=== PATIENT | male | born 1985 | race Caucasian/White ===

== ENCOUNTER 2017-10-19 10:57 | Emergency (ER) | payer OTHER ==
[~2017-10-19] VITALS: Ht 172.7 cm; Wt 80.1 kg
[~2017-10-19 10:57] MED LIST: DOCU-28 PO; ONDA4TAB6 PO
[2017-10-19] MEDS ORDERED: ketorolac trometh inj. 60 MG/2 ML VIAL IM ONE (12:15)
[2017-10-19 13:35] VITALS: BP 120/65
== END 2017-10-19 13:46 | disposition home or self-care (01) ==
LOC: ER 10:58
DX: M25.562 Pain in left knee (principal); M25.462 Effusion, left knee; J45.909 Unspecified asthma, uncomplicated; Z79.899 Other long term (current) drug therapy
CPT/HCPCS: 73560; 96372; 99284; A6449; J1885

== ENCOUNTER 2017-10-22 13:49 | Outpatient (CLI) | payer OTHER | END 2017-10-22 23:59 | disposition home or self-care (01) | LOC: RAD 13:49 | PROVIDERS: ATTEND Physician Assistant | DX: M25.462 Effusion, left knee (principal); Z87.828 Personal history of other (healed) physical injury and trauma | CPT/HCPCS: 73721 ==

== ENCOUNTER 2018-02-06 10:33 | Outpatient (CLI) | payer OTHER | END 2018-02-06 23:59 | disposition home or self-care (01) | LOC: RAD 10:33 | PROVIDERS: ATTEND Physician Assistant | DX: J34.1 Cyst and mucocele of nose and nasal sinus (principal); J45.909 Unspecified asthma, uncomplicated; Z87.891 Personal history of nicotine dependence | CPT/HCPCS: 70551 ==

== ENCOUNTER 2018-03-04 11:13 | Outpatient (CLI) | payer OTHER ==
[2018-03-06 17:12] LABS: TESTOSTERONE, FREE, DIRECT 7.7 pg/mL (8.7-25.1)
== END 2018-03-04 23:59 | disposition home or self-care (01) ==
LOC: LAB 11:13
PROVIDERS: ATTEND Physician Assistant
DX: E29.1 Testicular hypofunction (principal); J45.909 Unspecified asthma, uncomplicated; Z87.891 Personal history of nicotine dependence
CPT/HCPCS: 36415; 84402; 84403